=== PATIENT | female | born 1955 | race Caucasian/White ===

== ENCOUNTER 2017-03-22 03:24 | Emergency (ER) | payer BC ==
[~2017-03-22] VITALS: Ht 177.8 cm; Wt 86.2 kg
[2017-03-22 03:45] VITALS: BP 210/102
--- NOTE | 2017-03-22 04:09 | PHYS DOC ---
Past Medical History Past Medical History: Glaucoma, Hypertension Past Surgical History: Cholecystectomy, Alcohol Use: None Drug Use: None Adult General Chief Complaint Chief Complaint: FEVER HPI HPI Patient is a 62 year old female who presents with dental pain consistent for extraction a few days ago and has associated gradual onset bilateral frontal headache today. States her symptoms greatly improved while coming to the hospital. She is intermittently taking ibuprofen or symptoms. She is concerned that she was supposed to get antibiotics after her dental extractions, but she never received this medication or prescription. She denies measured fever, nausea or vomiting, ear pain, sore throat, difficulty breathing, difficulty swallowing. Review of Systems Review of Systems Constitutional: Denies fever [] Eyes: Denies change in visual acuity, redness, or eye pain [] HENT: Denies nasal congestion or sore throat [] Respiratory: Denies cough or shortness of breath [] Cardiovascular: No additional information not addressed in HPI [] GI: Denies abdominal pain, nausea, vomiting, bloody stools or diarrhea [] : Denies dysuria or hematuria [] Musculoskeletal: Denies back pain or joint pain [] Integument: Denies rash or skin lesions [] Neurologic: Denies focal weakness or sensory changes [] Endocrine: Denies polyuria or polydipsia [] Allergies Allergies Allergies Coded Allergies Type Severity Reaction Last Updated Verified bee venom (honey bee) Allergy Severe 01/14/16 Yes Physical Exam Physical Exam Constitutional: Well developed, well nourished, no acute distress, non-toxic appearance. [] HENT: Normocephalic, atraumatic, bilateral external ears normal, oropharynx moist, no oral exudates, nose normal. Has appropriate postop gumline tenderness where gums appear to be healing appropriately; there is no gumline swelling or discoloration; No stridor, change of voice, tongue swelling, trismus, or drooling; Uvula is midline and floor is nontender [] Eyes: PERRLA, EOMI. [] Neck: Normal range of motion, no tenderness, supple [] Cardiovascular: Heart rate regular rhythm [] Lungs & Thorax: Bilateral breath sounds clear to auscultation [] Abdomen: Bowel sounds normal, soft, no tenderness. [] Skin: Warm, dry, no erythema, no rash. [] Back: Normal range of motion. [] Extremities: No tenderness, ROM intact. [] Neurologic: Alert and oriented X 3, normal motor function, normal sensory function, no focal deficits noted. [] Psychologic: Affect normal, judgement normal, mood normal. [] Current Patient Data Vital Signs Vital Signs Date Time Temp Pulse Resp B/P Pulse Ox O2 Delivery O2 Flow Rate FiO2 03/22/17 03:45 99.4 84 18 94 Room Air 99.4 Course & Med Decision Making Course & Med Decision Making Discussed supportive care. Return precautions given. She understands and agrees with plan. Dragon Disclaimer Dragon Disclaimer This electronic medical record was generated, in whole or in part, using a voice recognition dictation system. Departure Departure Impression: Primary Impression: Headache Additional Impression: Pain, dental Disposition: HOME, SELF-CARE Condition: STABLE Referrals: NO PCP (PCP) Patient Instructions: General Headache Without Cause, [id number] Additional Instructions: Take Tylenol or ibuprofen as needed for pain. Follow-up with your primary care doctor. Return for any concerns. Problem Qualifiers Primary Impression: Headache Headache type: unspecified Headache chronicity pattern: acute headache Intractability: not intractable Qualified Code: R51 - Headache Carlos GIBSON MD Mar 22, 2017 04:09
== END 2017-03-22 04:13 | disposition home or self-care (01) ==
LOC: ER 03:24
DX: K08.89 Other specified disorders of teeth and supporting structures (principal); R51 Headache; H40.9 Unspecified glaucoma; I10 Essential (primary) hypertension; Z91.030 Bee allergy status
CPT/HCPCS: 99281